=== PATIENT | male | born 1935 | race Hispanic/Latino ===

== ENCOUNTER 2019-04-10 10:23 | Day surgery (SDC) | payer MEDICARE ==
--- NOTE | 2019-04-10 10:52 | Anesthesia Consultation ---
Anesthesia Consult and Med Hx Date of service: 04/10/19 - Airway Anesthetic Teeth Evaluation: Dentures ROM Head & Neck: Adequate Mental/Hyoid Distance: Adequate Mallampati Class: Class II Intubation Access Assessment: Good - Pulmonary Exam CTA: Yes - Cardiac Exam Cardiac Exam: RRR - Pre-Operative Health Status ASA Pre-Surgery Classification: ASA3, Emergency Proposed Anesthetic Plan: MAC - Pre-Anesthesia Comment Pre-Anesthesia Comments: impacted food bolus in esophagus - Cardiovascular System Hx Hypertension: Yes Hx Coronary Artery Disease: Yes Hx Heart Attack/AMI: Yes (stents 5 years ago. no open heart surgery) - Gastrointestinal Hx Ulcer: (PUD)
--- NOTE | 2019-04-10 10:54 | Anesthesia Day of Surgery ---
Anesthesia Day of Surgery - Day of Surgery Patient Examined: Yes Patient H&P Reviewed: Yes Patient is NPO: Yes Beta Blockers: Yes
[2019-04-10] MEDS ORDERED: XYLOCAINE 1% 20 mL ONE (10:57)
[2019-04-10] MEDS ORDERED: DIPRIVAN 10 MG/ML IV ONE ×2 (10:57)
[2019-04-10] MEDS ORDERED: NACL 0.9% 1000 ML 1,000 ML IV SCH (11:00)
--- NOTE | 2019-04-10 11:23 | Operative Report ---
Operative Report Operative Report: DOS: 04/10/19 SURGEON: Raphael العلي MD EGD REPORT PREOPERATIVE DIAGNOSIS and POSTOPERATIVE DIAGNOSIS: Dysphagia, food impaction ESTIMATED BLOOD LOSS: None DESCRIPTION OF PROCEDURE: A high-resolution EGD scope was passed through the oropharynx, esophagus, stomach, and second portion of duodenum. The scope was carefully withdrawn. Retroflexion was performed in the stomach. At the end of the procedure, the scope was cleaned using normal technique. Vital signs monitored continuously throughout. SEDATION: Provided by [facility]. COMPLICATIONS: None. 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 * Significant trauma with edema and erythema of the distal and mid esophagus, consistent with recent food impaction that spontaneously passed RECOMMENDATIONS: * Puree consistency diet * Hold plavix if cleared by cards * Follow up with Dr. Olsen for consideration of repeat EGD with dilation in the near future, with consideration of biopsy of the area suspicous for Sweet's esophagus
[2019-04-10 12:47] VITALS: BP 125/53
== END 2019-04-10 10:24 | disposition home or self-care (01) ==
LOC: GIO 10:23
PROVIDERS: ATTEND Student in an Organized Health Care Education/Training Program
DX: K22.2 Esophageal obstruction (principal); K44.9 Diaphragmatic hernia without obstruction or gangrene; R13.10 Dysphagia, unspecified; I11.0 Hypertensive heart disease with heart failure; I50.9 Heart failure, unspecified; I25.10 Atherosclerotic heart disease of native coronary artery without angina pectoris; K21.9 Gastro-esophageal reflux disease without esophagitis; Z98.890 Other specified postprocedural states; Z95.5 Presence of coronary angioplasty implant and graft; Z79.899 Other long term (current) drug therapy; Z87.891 Personal history of nicotine dependence; Z79.82 Long term (current) use of aspirin; Z98.49 Cataract extraction status, unspecified eye
CPT/HCPCS: 43235; J2704